=== PATIENT | female | born 1950 | race African-American/Black ===

== ENCOUNTER 2019-10-04 05:56 | Day surgery (SDC) | payer BC ==
[2019-09-30 16:42] VITALS: BMI 25.8
[2019-10-04] MEDS ORDERED: ONDANSETRON 4 MG/2 ML VIAL ONE ×2 (07:07→09:14)
[2019-10-04] MEDS ORDERED: ceFAZolin SODIUM 1 GM VIAL ONE (07:07)
[2019-10-04] MEDS ORDERED: LIDOCAINE HCL/PF 2% SDV 5ML VIAL ONE (07:07)
[2019-10-04] MEDS ORDERED: DEXAMETHASONE SOD PHOSPHATE 4 MG/1 ML VIAL ONE (07:07)
[2019-10-04] MEDS ORDERED: KETOROLAC TROMETHAMINE 30 MG/1 ML VIAL ONE (07:07)
[2019-10-04] MEDS ORDERED: PROPOFOL 20 ML ONE ×3 (07:08)
[2019-10-04] MEDS ORDERED: MIDAZOLAM HCL 2 MG/2 ML SINGLE DOSE VIAL ONE ×3 (07:08)
[2019-10-04] MEDS ORDERED: ROPIVACAINE HCL 0.5% 30ML VIAL ONE (07:08)
[2019-10-04] MEDS ORDERED: EPHEDRINE SULFATE/0.9% NACL/PF 50 MG/10 ML SYRINGE NR ONE (07:12)
[2019-10-04] MEDS ORDERED: oxyCODONE HCL 5 MG TABLET PO PRN ×2 (08:33)
[2019-10-04] MEDS ORDERED: ONDANSETRON 4 MG/2 ML VIAL IVPUSH PRN (08:33)
[2019-10-04] MEDS ORDERED: LACTATED RINGERS SOLUTION 1,000 ML IV SCH (08:45)
[2019-10-04 11:10] VITALS: TEMP 98
[2019-10-04 11:30] VITALS: BP 135/78; PULSE 98
--- NOTE | 2019-10-04 11:47 | OP ---
DATE OF OPERATION: 10/04/2019 PREOPERATIVE DIAGNOSES: 1. Torn rotator cuff to the right shoulder. 2. Frozen right shoulder. POSTOPERATIVE DIAGNOSES: 1. Torn rotator cuff to the right shoulder. 2. Frozen right shoulder with adhesive capsulitis and adhesions within the joint. 3. Torn glenoid labrum to the right shoulder. 4. Extensive joint debris to the right shoulder. 5. Extensive hypertrophic bursal tissue to the right shoulder. 6. Impingement from the lateral clavicle and articular portion to the right shoulder. PROCEDURE: 1. Extensive debridement for rotator cuff tearing to the right shoulder. 2. Manipulation under anesthesia to the right shoulder with lysis and resection of adhesions. 3. Debridement of glenoid labral tear to the right shoulder. 4. Extensive joint debridement to the right shoulder. 5. Extensive resection of hypertrophic bursal tissue to the right acromiohumeral joint to the right shoulder. 6. Lateral clavicular resection, Bronwyn procedure including the articular portion creating impingement to the right shoulder. 7. Plastic surgical closure to the right shoulder. SURGEON: Vikki Robbins MD OLIVE GRADER: HOSSEIN Zimmerman ANESTHESIA: Tawana Martin MD TYPE OF ANESTHESIA: Regional anesthesia, interscalene block. DESCRIPTION OF PROCEDURE: The procedure consisted of the patient being brought into the operating room and gently transferred from the stretcher to the operating room table with all bony prominences well padded. The right shoulder was prepared and draped in a sterile fashion. The patient was given intravenous antibiotics and copious irrigation throughout the procedure to minimize risk for infection. A complete risk, benefit, alternative discussion was conducted with the patient, risks inclusive of but not limited to infection, bleeding, , paralysis, increased pain, need for repeat surgery. Patient asked questions, understood the procedure and desired to proceed with surgical treatment. Following sterile preparation and draping of the right shoulder, the patient had been placed in the right side up lateral decubitus position with all bony prominences well padded. A pillow had been placed below the legs, in between the legs to protect the neurovascular structures of the legs. The patient's torso had been placed on a pneumatic conforming calhoun bag cushion. The lower shoulder was protected with an axillary roll. The neck was kept in good alignment throughout the procedure by the anesthesiologist. The head and face were protected by the anesthesiologist throughout the procedure. The shoulder was gently given manipulation for adhesive capsulitis which reduced range of movement by greater than 50 percent. Initial abduction 80 degrees, flexion 80 degrees, extension 10 degrees, internal rotation 60 degrees, external rotation 10 degrees. Following the gentle slow manipulation of the shoulder, abduction was 170 degrees, flexion 170 degrees, extension 30 degrees, internal rotation 90 degrees, external rotation 30 degrees. Gentle traction of approximately 8 pounds was applied using a traction device. The glenohumeral joint was evaluated. Anterior, posterior and lateral portals were used for the procedure. A sterile preparation and draping had been performed. The glenohumeral joint was evaluated. There was noted to be adhesions within the joint and these were lysed and resected. There was noted to be extensive debris within the glenohumeral joint and extensive joint debridement was performed. There was noted to be tearing of the glenoid labrum and the glenoid labrum was resected and the torn portions removed. Anterior and posterior recesses were without loose body or plica. Middle glenohumeral ligament was found to be intact as was the biceps tendon. Rotator cuff on the articular side was evaluated. There was noted to be tearing of the rotator cuff which was probed and found to be partial-thickness and this was debrided using a shaver and radiofrequency wand. The shoulder joint was copiously irrigated with sterile saline irrigant. Hypertrophic synovium was also resected. The glenohumeral joint was copiously irrigated and our attention was turned to the subacromial space. The subacromial space was noted to have extensive bursal tissue and extensive bursectomy was performed. Rotator cuff on the bursal side was found to have a tear and this was debrided using a shaver and radiofrequency wand. The lateral clavicle was also creating impingement including the articular portion. This was debrided and the high-speed bur and shaver were used to resect the lateral clavicle including the articular portion and Bronwyn procedure was performed. Following decompression, there was noted to be no significant impingement on movement of the shoulder. The shoulder joint was copiously irrigated with sterile saline irrigant. A plastic surgical closure was performed using undyed 4-0 Vicryl in a subcuticular inverted stitch. This was followed by Steri-Strips, Xeroform, 4 x 4's, combine, Elastoplast and shoulder immobilizer. It should be noted that Hang Ornelas, my assistant vice president, was critical for safe surgical procedure and he held the arthroscope as I used the arthroscopic instruments. VIKKI ROBBINS M.D. [id number] MTDD
== END 2019-10-04 11:15 | disposition home or self-care (01) ==
LOC: FASU 05:56
PROVIDERS: ATTEND Orthopaedic Surgery
PROC: 0PB94ZZ Excision of Right Clavicle, Percutaneous Endoscopic Approach (ICD-10-PCS; 2019-10-04)
PROC: 0RNJXZZ Release Right Shoulder Joint, External Approach (ICD-10-PCS; 2019-10-04)
PROC: 0RBJ4ZZ Excision of Right Shoulder Joint, Percutaneous Endoscopic Approach (ICD-10-PCS; principal; 2019-10-04 08:29)
DX: M75.111 Incomplete rotator cuff tear or rupture of right shoulder, not specified as traumatic (principal); M75.01 Adhesive capsulitis of right shoulder; M24.111 Other articular cartilage disorders, right shoulder; M24.011 Loose body in right shoulder; M75.41 Impingement syndrome of right shoulder
CPT/HCPCS: 94760